=== PATIENT | male | born 1995 | race African-American/Black ===

== ENCOUNTER 2019-01-01 11:58 | Emergency (ER) | payer OTHER ==
[2019-01-01] MEDS ORDERED: Tetan/Diph/Pertus SYR(Tdap)* 0.5 ML SYR(BOOSTRIX) use SYR IM ONE (13:28)
[2019-01-01 13:44] VITALS: BP 147/81
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
== END 2019-01-01 13:43 | disposition home or self-care (01) ==
LOC: ED 11:58
DX: S71.111A Laceration without foreign body, right thigh, initial encounter (principal); W26.0XXA Contact with knife, initial encounter; F17.210 Nicotine dependence, cigarettes, uncomplicated
CPT/HCPCS: 12001; 90471; 90715; 99282

== ENCOUNTER 2019-01-06 15:00 | Emergency (ER) | payer OTHER ==
[2019-01-06 15:19] VITALS: BP 123/72
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
== END 2019-01-06 17:05 | disposition home or self-care (01) ==
LOC: UCEAST 15:00
DX: S71.111A Laceration without foreign body, right thigh, initial encounter (principal); S70.11XA Contusion of right thigh, initial encounter; W26.0XXA Contact with knife, initial encounter; Y92.9 Unspecified place or not applicable; G62.9 Polyneuropathy, unspecified; M79.89 Other specified soft tissue disorders; F17.210 Nicotine dependence, cigarettes, uncomplicated
CPT/HCPCS: 99212; G0463